=== PATIENT | male | born 1985 | race Caucasian/White ===

== ENCOUNTER 2017-04-13 22:29 | Inpatient (IN) | payer OTHER ==
[~2017-04-13] VITALS: Ht 177.8 cm; Wt 120.7 kg
[2017-04-13 22:37] VITALS: BP_SYST 150
[2017-04-13 23:59] LABS: BASOPHILS # (AUTO) 0.1 K/uL (0.0-0.2); BASOPHILS % (AUTO) 0.6 % (0.0-2.0); EOSINOPHILS # (AUTO) 0.1 K/uL (0.0-0.4); EOSINOPHILS % (AUTO) 0.9 % (0.0-4.0); HEMATOCRIT 47.7 % (36-54); HEMOGLOBIN 16.5 g/dL (14.0-18.0); LYMPHOCYTES # (AUTO) 3.7 K/uL (1.0-5.5); LYMPHOCYTES % (AUTO) 32.6 % (20.5-51.5); MEAN CORPUSCULAR HEMOGLOBIN 31 pg (27-31); MEAN CORPUSCULAR HGB CONC 35 % (32-36); MEAN CORPUSCULAR VOLUME 89 fL (79.0-98.0); MONOCYTES # (AUTO) 0.6 K/uL (0.0-1.0); MONOCYTES % (AUTO) 5.3 % (1.7-9.3); NEUTROPHILS # (AUTO) 6.7 K/uL (1.8-7.7); NEUTROPHILS % (AUTO) 60.6 % (40.0-70.0); PLATELET COUNT (AUTO) 306 K/uL (130-430); RED BLOOD CELL COUNT(AUTO) 5.39 MIL/uL (4.2-6.2); RED CELL DISTRIBUTION WIDTH 13.1 % (9.0-15.0); WHITE BLOOD COUNT (AUTO) 11.2 K/uL (4.8-10.8)
[2017-04-14] LABS: CALCIUM 8.6 mg/dL (8.4-11.0); CREATININE 1.25 mg/dL (0.55-1.30); POTASSIUM 3.5 mmol/L (3.5-5.1)
[2017-04-14 00:04] LABS: ALBUMIN 4.2 g/dL (3.4-4.8); TOTAL BILIRUBIN 0.3 mg/dL (0.0-1.0); TOTAL PROTEIN, SERUM 7.7 g/dL (6.4-8.3)
[2017-04-14] MEDS ORDERED: SERT-131 PO (01:18)
[2017-04-14] MEDS ORDERED: GABA-529 PO (01:18)
[2017-04-14] MEDS ORDERED: TRAZ-123 PO (01:18)
[2017-04-14] MEDS ORDERED: OMEP20CA10 PO (01:18)
[2017-04-14] MEDS ORDERED: INSULIN REGULAR, HUMAN 100 UNITS/ML, 10 ML VIAL (novoLIN R) SUBCUT PRN (01:30)
[2017-04-14 01:42] VITALS: BP_SYST 134
[2017-04-14] MEDS: NACL 0.9% 1,000 ML IV SCH ×2 (02:38→13:17)
[2017-04-14 04:16] VITALS: BP_SYST 139
[2017-04-14 08:00] VITALS: BP_SYST 154
[2017-04-14] MEDS: MORPHINE 2 MG/ML INJ. SYRINGE IVP PRN ×3 (08:31→18:52)
[2017-04-14] MEDS ORDERED: ZOLPIDEM TARTRATE 5 MG TABLET PO PRN (09:15)
[2017-04-14] MEDS ORDERED: ACETAMINOPHEN 325 MG TABLET PO PRN (09:15)
[2017-04-14] MEDS ORDERED: ONDANSETRON HCL 4 MG/2 ML VIAL IVP PRN (09:15)
[2017-04-14] MEDS ORDERED: DOCUSATE SODIUM 100 MG CAPSULE PO PRN (09:15)
[2017-04-14] MEDS ORDERED: POTASSIUM CHLORIDE 10 MEQ TAB.PRT.SR PO PRN (09:15)
[2017-04-14] MEDS ORDERED: MAGNESIUM SULFATE 50 ML IV PRN (09:15)
[2017-04-14] MEDS ORDERED: MORPHINE 2 MG/ML INJ. SYRINGE IVP PRN (09:15)
[2017-04-14] MEDS ORDERED: CARISOPRODOL 350 MG TABLET PO ONE (09:15)
[2017-04-14] MEDS ORDERED: LORazepam 2 MG/ML VIAL IVP PRN (09:15)
[2017-04-14 12:22] VITALS: BP_SYST 145
[2017-04-14] MEDS: GABAPENTIN 100 MG CAPSULE PO SCH ×2 (15:53→21:50)
[2017-04-14 16:19] VITALS: BP_SYST 142
[2017-04-14 21:58] VITALS: BP_SYST 141
[2017-04-15] MEDS: MORPHINE 2 MG/ML INJ. SYRINGE IVP PRN (00:39)
[2017-04-15 01:22] VITALS: BP_SYST 145
[2017-04-15] MEDS: NACL 0.9% 1,000 ML IV SCH (03:26)
[2017-04-15 04:57] VITALS: BP_SYST 131
[2017-04-15 06:23] LABS: EOSINOPHILS # (AUTO) 0.2 K/uL (0.0-0.4); HEMATOCRIT 46.3 % (36-54); LYMPHOCYTES # (AUTO) 2.7 K/uL (1.0-5.5); MONOCYTES # (AUTO) 0.6 K/uL (0.0-1.0); RED CELL DISTRIBUTION WIDTH 12.7 % (9.0-15.0)
[2017-04-15 06:32] LABS: BASOPHILS % (AUTO) 0.3 % (0.0-2.0); EOSINOPHILS % (AUTO) 2.2 % (0.0-4.0); HEMOGLOBIN 15.3 g/dL (14.0-18.0); LYMPHOCYTES % (AUTO) 35.5 % (20.5-51.5); MEAN CORPUSCULAR HEMOGLOBIN 30 pg (27-31); MEAN CORPUSCULAR HGB CONC 33 % (32-36); MEAN CORPUSCULAR VOLUME 90 fL (79.0-98.0); MONOCYTES % (AUTO) 7.8 % (1.7-9.3); NEUTROPHILS % (AUTO) 54.2 % (40.0-70.0); PLATELET COUNT (AUTO) 247 K/uL (130-430); RED BLOOD CELL COUNT(AUTO) 5.17 MIL/uL (4.2-6.2); WHITE BLOOD COUNT (AUTO) 7.5 K/uL (4.8-10.8)
[2017-04-15 06:48] LABS: CALCIUM 8.6 mg/dL (8.4-11.0); CREATININE 1.01 mg/dL (0.55-1.30); POTASSIUM 3.8 mmol/L (3.5-5.1)
[2017-04-15 08:00] VITALS: BP_SYST 146
[2017-04-15] MEDS ORDERED: SERTRALINE HCL 50 MG TABLET PO SCH (09:00)
[2017-04-15] MEDS: traZODone HCL 50 MG TABLET (DESYREL) PO SCH ×3 (09:00→09:07)
[2017-04-15] MEDS: GABAPENTIN 100 MG CAPSULE PO SCH (09:06)
[2017-04-15 10:17] VITALS: BP_SYST 96
== END 2017-04-15 10:40 | disposition home or self-care (01) | DRG 74 ==
LOC: SED 22:29 → SMU 04-14 01:30
PROVIDERS: ADMIT General Practice; ATTEND General Practice
DX: G90.9 Disorder of the autonomic nervous system, unspecified (principal); S06.0X1A Concussion with loss of consciousness of 30 minutes or less, initial encounter; E66.9 Obesity, unspecified; F17.210 Nicotine dependence, cigarettes, uncomplicated; F43.10 Post-traumatic stress disorder, unspecified; I10 Essential (primary) hypertension; R74.0 Nonspecific elevation of levels of transaminase and lactic acid dehydrogenase [LDH]; K21.9 Gastro-esophageal reflux disease without esophagitis; R56.9 Unspecified convulsions; E11.9 Type 2 diabetes mellitus without complications; W07.XXXA Fall from chair, initial encounter; Y93.89 Activity, other specified; Y92.89 Other specified places as the place of occurrence of the external cause; Y99.8 Other external cause status; Z88.0 Allergy status to penicillin; Z79.899 Other long term (current) drug therapy; Z68.38 Body mass index [BMI] 38.0-38.9, adult
CPT/HCPCS: 36415; 70450-TC; 72125-TC; 76700-TC; 80048; 80053; 82962; 83735-TC; 85025; 99285; J1815; J2270; J7030